=== PATIENT | female | born 1960 | race Caucasian/White ===

== ENCOUNTER 2019-06-27 10:40 | Emergency (ER) | payer OTHER ==
--- NOTE | 2019-06-27 10:56 | EDM.PDOC ---
ED HPI GENERAL MEDICAL PROBLEM - General Chief Complaint: Upper Extremity Injury/Pain Stated Complaint: RT WRIST INJURY Time Seen by Provider: 06/27/19 10:55 - History of Present Illness INITIAL COMMENTS - FREE TEXT/NARRATIVE: 59-year-old female presents emergency room with right hand injury. On Monday of this week the patient injured her right hand. She was using an industrial mop bucket and when she was trying to squeeze the mop out with a handle on the bucket her hand slipped off the handle and she hit the portion of the bucket that squeezes the mop. Since that time she's had increasing discomfort over the dorsum of her hand more on the ulnar aspect. Patient denies any other injuries associated with this. She has no other complaints at this time Right Hand Pain Score (Numeric/FACES): 5 - Related Data Allergies Allergy/AdvReac Type Severity Reaction Status Date / Time adhesive Allergy Blisters Verified 11/12/15 14:03 hydrocodone Allergy Itching Verified 11/12/15 14:03 Iodinated Contrast Media Allergy Hives Verified 11/12/15 14:03 [Iodinated Contrast Media - IV Dye] shellfish derived Allergy Hives Verified 11/12/15 14:03 colchicine AdvReac Vomiting Verified 11/12/15 14:03 Home Meds: Home Meds Allopurinol [Zyloprim] 300 mg PO DAILY 04/27/15 [History] Levothyroxine Sodium [Levoxyl] 100 mcg PO DAILY 04/27/15 [History] Metoprolol Tartrate [Lopressor] 50 mg PO BID 04/27/15 [History] Cholecalciferol (Vitamin D3) [Vitamin D3] 7,000 units PO DAILY 09/05/15 [History ] Multivitamin [Flintstones] 1 each PO BID 09/05/15 [History] Estrogens, Conjugated [Premarin Vaginal Crm] 1 applic VAG BEDTIME PRN 11/12/15 [ History] Mometasone Furoate [Elocon] 1 appful TP DAILY PRN 11/12/15 [History] Pantoprazole Sodium [Protonix] 20 mg PO DAILY PRN 11/12/15 [History] amLODIPine Besylate [Amlodipine Besylate] 5 mg PO DAILY 11/12/15 [History] Cyanocobalamin (Vitamin B12) [Vitamin B12] 500 mcg PO DAILY 06/27/19 [History] buPROPion HCl [Wellbutrin Xl] 150 mg PO DAILY 06/27/19 [History] Past Medical History HEENT History: Reports: Impaired Vision Other HEENT History: glasses, top denture, eye surgery when 2 years old Cardiovascular History: Reports: High Cholesterol, Hypertension Respiratory History: Reports: Sleep Apnea Other Respiratory History: doesn't use machine Gastrointestinal History: Reports: GERD, Hemorrhoids, Other (See Below) Other Gastrointestinal History: anal fistula MAGNET PLACER History: Reports: Other (See Below) Other MAGNET PLACER History: Fistula repair, dyspareunia, atrophic vaginits, spontaneous vaginal delivery Musculoskeletal History: Reports: Gout, Osteoarthritis Other Musculoskeletal History: discectomy 1998 Psychiatric History: Reports: Anxiety, Depression Endocrine/Metabolic History: Reports: Hypothyroidism Other Dermatologic History: rash, dry skin - Past Surgical History HEENT Surgical History: Reports: Adenoidectomy, Eye Surgery, Tonsillectomy GI Surgical History: Reports: Bariatric Procedure, Cholecystectomy Female Surgical History: Reports: Hysterectomy, Tubal Ligation Neurological Surgical History: Reports: Discectomy, Lumbar Spine Review of Systems - Review of Systems Review Of Systems: See Below Constitutional: Reports: No Symptoms Respiratory: Reports: No Symptoms Cardiovascular: Reports: No Symptoms GI/Abdominal: Reports: No Symptoms ED EXAM, GENERAL - Physical Exam Exam: See Below Exam Limited By: No Limitations General Appearance: Alert, No Apparent Distress Respiratory/Chest: No Respiratory Distress, Lungs Clear, Normal Breath Sounds Cardiovascular: Regular Rate, Rhythm, No Edema, No Murmur Extremities: Other (Examination of her right upper extremity shows good range of motion at the elbow good flexion extension supination and pronation. She's a good flexion and extension at the wrist she developed some discomfort over the top of her hand at the extremes of flexion. Flexion of the digits causes some discomfort over the top of her hand. But all flexion and extension is normal neurovascular status of the hand is otherwise normal.) Course - Vital Signs Last Recorded V/S: Last Vital Signs Temp 36.5 C 06/27/19 10:57 Pulse 50 L 06/27/19 10:57 Resp 16 06/27/19 10:57 BP 183/65 H 06/27/19 10:57 Pulse Ox 95 06/27/19 10:57 - Orders/Labs/Meds Orders: Active Orders 24 hr Category Date Time Status Hand Comp Min 3V Rt [CR] Stat Exams 06/27/19 11:08 Taken - Re-Assessments/Exams Free Text/Narrative Re-Assessment/Exam: 06/27/19 11:51 Examination of the right hand is negative for acute fracture dislocation she's got what looks like osteopenic bones. Advised the patient to use her splint only as needed and keep moving her hand and wrist. She'll use Tylenol for pain. Her blood pressures been a little high here in the emergency department she'll follow-up with her regular provider before [place] for recheck. Departure - Departure Time of Disposition: 11:53 Disposition: Home, Self-Care 01 Clinical Impression: Contusion of right hand - Discharge Information Referrals: Aixa Stanley PA-C [Primary Care Provider] - Forms: ED Department Discharge Additional Instructions: Return to the emergency room with any questions or problems. Use Tylenol for discomfort.. Keep using her hand as tolerated. Use the splint as necessary. Follow-up he regular provider before [place] to have blood pressure rechecked Sepsis Event Note - Focused Exam Vital Signs: Vital Signs Temp Pulse Resp BP Pulse Ox 06/27/19 10:57 36.5 C 50 L 16 183/65 H 95 Date Exam was Performed: 06/27/19 Time Exam was Performed: 11:40 - My Orders Last 24 Hours: My Active Orders 06/27/19 11:08 Hand Comp Min 3V Rt [CR] Stat - Assessment/Plan Last 24 Hours: My Active Orders 06/27/19 11:08 Hand Comp Min 3V Rt [CR] Stat
[2019-06-27 11:03] VITALS: PULSE 50
[2019-06-27 12:20] VITALS: BP 152/59
--- NOTE | 2019-06-27 13:00 | CR ---
Right hand: Four views of the right hand were obtained. Comparison: No prior hand exam. Joint space narrowing is noted off the distal navicular bone. Joint spaces otherwise are fairly well preserved. No periarticular osteopenia or erosions are seen. No acute fracture or other bony abnormality is seen. Impression: 1. Joint space narrowing off the distal navicular bone. 2. No additional abnormality is appreciated on right hand exam. Diagnostic code #2 This report was dictated in [place] Standard Time
== END 2019-06-27 12:20 | disposition home or self-care (01) ==
LOC: JD.ED 10:40
DX: S60.221A Contusion of right hand, initial encounter (principal); E78.00 Pure hypercholesterolemia, unspecified; I10 Essential (primary) hypertension; K21.9 Gastro-esophageal reflux disease without esophagitis; F41.9 Anxiety disorder, unspecified; F32.9 Major depressive disorder, single episode, unspecified; E03.9 Hypothyroidism, unspecified; Z88.5 Allergy status to narcotic agent; Z91.041 Radiographic dye allergy status; Z91.013 Allergy to seafood; Z88.8 Allergy status to other drugs, medicaments and biological substances; Z91.048 Other nonmedicinal substance allergy status; Z79.890 Hormone replacement therapy; Z79.899 Other long term (current) drug therapy; W22.8XXA Striking against or struck by other objects, initial encounter; Y93.89 Activity, other specified
CPT/HCPCS: 73130-26-RT; 73130-RT; 99282; 99283-25

== ENCOUNTER 2020-06-26 17:19 | Emergency (ER) | payer OTHER ==
[2020-06-26] MEDS ORDERED: Orphenadrine 100 MG Tab.ER PO ONE (18:06)
[2020-06-26] MEDS ORDERED: Ketorolac 60 MG/2 ML SDV IM ONE (18:06)
[2020-06-26] MEDS ORDERED: FLU VACC QS2020-21(6MOS UP)/PF 60 MCG/0.5 ML SYRINGE IM ONE (18:15)
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
[2020-06-26 19:11] VITALS: BP 156/60; PULSE 52
== END 2020-06-26 19:11 | disposition home or self-care (01) ==
LOC: JD.ED 17:19
DX: S13.4XXA Sprain of ligaments of cervical spine, initial encounter (principal); G44.209 Tension-type headache, unspecified, not intractable; M54.6 Pain in thoracic spine; I10 Essential (primary) hypertension; K21.9 Gastro-esophageal reflux disease without esophagitis; M10.9 Gout, unspecified; F41.9 Anxiety disorder, unspecified; F32.9 Major depressive disorder, single episode, unspecified; E03.9 Hypothyroidism, unspecified; Z91.048 Other nonmedicinal substance allergy status; Z88.5 Allergy status to narcotic agent; Z91.041 Radiographic dye allergy status; Z88.8 Allergy status to other drugs, medicaments and biological substances; Z91.013 Allergy to seafood; Z79.899 Other long term (current) drug therapy; Z23 Encounter for immunization; V89.2XXA Person injured in unspecified motor-vehicle accident, traffic, initial encounter
CPT/HCPCS: 90471; 90686; 96372; 99283; A9270; J1885; 99284; G0008

== ENCOUNTER 2023-11-13 16:29 | Emergency (ER) | payer MEDICARE, OTHER ==
[2023-11-13 16:50] VITALS: PULSE 55
[2023-11-13] MEDS: Sodium Chloride 0.9% 10 ML Syringe FLUSH PRN (17:45)
[2023-11-13 18:53] LABS: APPEARANCE,URINE CLEAR (Clear); BILIRUBIN,URINE 1+ (Negative); COLOR,URINE YELLOW (Yellow); GLUCOSE,URINE NEGATIVE (Negative); KETONES,URINE TRACE (Negative); LEUKOCYTE ESTERASE,URINE 1+ (Negative); NITRITE,URINE NEGATIVE (Negative); OCCULT BLOOD,URINE NEGATIVE (Negative); PROTEIN,URINE NEGATIVE (Negative); UROBILINOGEN,URINE 0.2 (0.2-1.0)
[2023-11-13] MEDS: hydrALAZINE 20 MG/ML SDV IVPUSH ONE (19:15)
[2023-11-13] MEDS: Ketorolac 30 MG/ML SDV IVPUSH ONE (19:16)
[2023-11-13 19:27] LABS: BACTERIA,URINE MODERATE /hpf (FEW); MUCUS,URINE MODERATE /hpf (FEW); RBC,URINE 0-5 /hpf (0-5); SQUAMOUS EPITHELIAL CELLS,UR 0-5 /hpf (0-5); WBC,URINE 20-30 /hpf (0-5)
[2023-11-13 21:43] VITALS: BP 206/79
== END 2023-11-13 20:23 | disposition left against medical advice (07) ==
LOC: JD.ED 16:29
DX: I1A.0 Resistant hypertension (principal); G44.209 Tension-type headache, unspecified, not intractable; H53.8 Other visual disturbances; E78.00 Pure hypercholesterolemia, unspecified; E03.9 Hypothyroidism, unspecified; Z91.048 Other nonmedicinal substance allergy status; Z88.5 Allergy status to narcotic agent; Z91.041 Radiographic dye allergy status; Z91.013 Allergy to seafood; Z88.8 Allergy status to other drugs, medicaments and biological substances; Z79.82 Long term (current) use of aspirin; Z79.899 Other long term (current) drug therapy; Z90.49 Acquired absence of other specified parts of digestive tract; Z90.710 Acquired absence of both cervix and uterus
CPT/HCPCS: 70450; 81001; 81003; 87086; 93005; 96374; 96375; 99284; J0360; J1885; J3490; 93010